=== PATIENT | female | born 1935 | race Hispanic/Latino ===

== ENCOUNTER 2017-01-01 09:13 | Day surgery (SDC) | payer MEDICARE ==
[2016-12-28 09:44] VITALS: BMI 25.4
[2017-01-01] MEDS ORDERED: Naloxone 0.4 mg/ml Inj (Adult) ONE (11:32)
[2017-01-01] MEDS ORDERED: Benzocaine/Butamben/Tetracai 14-2-2% TOP Spray TOP ONE (11:32)
[2017-01-01] MEDS ORDERED: Midazolam 2 MG/2 ML VIAL ONE (11:32)
[2017-01-01] MEDS ORDERED: Flumazenil 0.1 mg/ml Inj (5ml) IVP ONE (11:32)
[2017-01-01] MEDS ORDERED: Midazolam 2 MG/2 ML VIAL IV ONE ×3 (12:14→12:16)
[2017-01-01] MEDS ORDERED: Sodium Chloride 0.9% 1,000 ML IV SCH (12:45)
[2017-01-01 13:07] VITALS: O2SAT 98
[2017-01-01 13:41] VITALS: RESP 18
[2017-01-01 14:02] VITALS: TEMP 97.9
[2017-01-01 15:11] VITALS: BP 137/52; PULSE 80
--- NOTE | 2017-01-01 15:41 | CARD ---
APPROVED REPORT EXAM: Transesophageal echocardiogram with color flow Doppler. INDICATION AORTIC STENOSIS 2D DIMENSIONS LVOT Diameter1.5 (1.8-2.4cm) M-Mode DIMENSIONS Aortic Cusp Exc.0.90 (1.5-2.0cm) Aortic Valve AoV Peak Ftglyxyn748.0cm/sAoV LJQ990.0cmAO Peak GR.91mmHg LVOT Peak Ajinqssy61.5cm/sLVOT VTI20.40cmAO Mean GR.54mmHg CÉSAR (VMAX)0.62rx2VSH (VTI)0.31cm2 Mitral Valve E/A ratio0.0 TDI E/Lateral E'0.0E/Medial E'0.0 Reason For Test : Evaluate prosthetic valve, S/p TAVR PROCEDURE After obtaining informed consent, patient underwent transesophageal echo in the Echo Lab. Type of Sedation : Conscious Sedation Sedation was administered by DR. nicolas. Sedation was achieved with Versed and , Fentanyl 2mg and 50 mcg intravenously. Echo enhancement indication: R/O Septal defect. Echo enhancement agent administered: Agitated Saline The ROMAN was performed without complications. Throughout the procedure, the blood pressure, pulse oximetry, cardiac rhythm, and rate were monitored. The patient tolerated the procedure without adverse effects. Recovery from conscious sedation was uneventful and vital signs were stable. LEFT VENTRICLE The left ventricle is normal size. There is mild to moderate concentric left ventricular hypertrophy. The left ventricular function is normal.EF-65% There is normal LV segmental wall motion. The left ventricular diastolic function is normal. No left ventricle thrombus noted on this study. There is no ventricular septal defect visualized. There is no left ventricular aneurysm. There is no mass noted in the left ventricle. RIGHT VENTRICLE The right ventricle is normal size. There is normal right ventricular wall thickness. The right ventricular systolic function is normal. ATRIA Mild to Moderate LAE The right atrium is mildly dilated. The interatrial septum is intact with no evidence for an atrial septal defect. AORTIC VALVE There is severe aortic regurgitation. ( eccentric Jet) Moderate though peak gradient is 90 mm of hg, But cusp separation 0.8-0.9 cm c/w moderate As. s/p TAVR MITRAL VALVE The mitral valve leaflets are thickened. There is no evidence of mitral valve prolapse. There is no mitral valve stenosis. Mitral regurgitation is moderate. TRICUSPID VALVE The tricuspid valve leaflets display thickening. There is mild tricuspid regurgitation. There is no tricuspid valve prolapse or vegetation. There is no tricuspid valve stenosis. PULMONIC VALVE The pulmonic valve is mildly thickened. There is trace pulmonic valvular regurgitation. There is no pulmonic valvular stenosis. GREAT VESSELS The aortic root is normal in size. The ascending aorta is normal in size. The pulmonary artery is normal. The IVC is normal in size and collapses >50% with inspiration. PERICARDIAL EFFUSION There is no pericardial effusion. There is no pleural effusion. <Conclusion> There is mild to moderate concentric left ventricular hypertrophy. The left ventricular function is normal.EF-65% s/p TAVR Moderate though peak gradient is 90 mm of hg, But cusp separation 0.8-0.9 cm c/w moderate As. There is severe aortic regurgitation. ( eccentric Jet) Mitral regurgitation is moderate. CC; Dr. Landers.
== END 2017-01-01 15:12 | disposition home or self-care (01) ==
LOC: TEE 09:13
PROVIDERS: ATTEND Internal Medicine Cardiovascular Disease
DX: I35.0 Nonrheumatic aortic (valve) stenosis (principal); I34.0 Nonrheumatic mitral (valve) insufficiency; Z95.2 Presence of prosthetic heart valve; I10 Essential (primary) hypertension; E78.00 Pure hypercholesterolemia, unspecified
CPT/HCPCS: 93312; J2250; J3010; J7040 ×2